=== PATIENT | male | born 1950 | race Caucasian/White ===

== ENCOUNTER 2025-02-10 09:15 | Emergency (ER) | payer MEDICARE, OTHER ==
[2025-02-10] MEDS: Lidocaine 4% 5 ML Amp NEB ONE (11:41)
== END 2025-02-10 12:45 | disposition home or self-care (01) ==
LOC: MW.ED 09:15
DX: J18.9 Pneumonia, unspecified organism (principal); E11.9 Type 2 diabetes mellitus without complications; Z75.3 Unavailability and inaccessibility of health-care facilities; Z79.899 Other long term (current) drug therapy
CPT/HCPCS: 71046; 94640; 96372; 99283; J1100; 99282; J3490